=== PATIENT | female | born 1990 | race Caucasian/White ===

== ENCOUNTER 2020-09-25 08:05 | Emergency (ER) | payer OTHER ==
[~2020-09-25] VITALS: Ht 162.6 cm; Wt 98.4 kg
[2020-09-25] MEDS ORDERED: OMEP20ER PO (10:44)
== END 2020-09-25 11:14 | disposition home or self-care (01) ==
LOC: ER 08:05
DX: K21.9 Gastro-esophageal reflux disease without esophagitis (principal); F17.200 Nicotine dependence, unspecified, uncomplicated
CPT/HCPCS: 99283